=== PATIENT | female | born 1940 | race Caucasian/White ===

== ENCOUNTER → 2020-11-09 | Outpatient (CLI) | payer MEDICARE, BC ==
[2016-05-06 14:32] VITALS: BP 154/89
[~2020-11-09] MED LIST: ASPI-482 PO; CALC600T60 PO; LISI20TA18 PO; MAGN250T10 PO; MAGN296S68 PO; METO-239 PO; OMEP40CA45 PO; PRAV40TA2 PO
--- NOTE | 2020-11-09 16:49 | RAD ---
MR#: [id number] Date of Study: 11/09/2020 Ordering Physician: SONIA BROWN, Referring Physician: FLORENTIN FLANNERY Tech: RT Caitlyn (Conner) (N) APPROVED REPORT Test Type: Exercise Stress Nurse/Tech: Juan J Rojas RN Test Indications: chest pain Cardiac History: HTN Medications: See Electronic Medical Record Medical History: See Electronic Medical Record Resting ECG: SR Resting Heart Rate: 59 bpm Resting Blood Pressure: 188/76mmHg Pretest Chest Pain: No chest pain Nurse/Tech Notes Lungs CTA, S1S2 Consent: The procedure was explained to the patient in lay terms. Informed consent was witnessed. Mele eout was entered into [employer]. History and Stress Test performed by RT Sarah (R) (N) Stress Symptoms No chest pain or symptoms. POST EXERCISE Reason for Termination: Reached target heart rate Target HR: Yes % of Maximum Predicted HR: 119 bpm Exercise duration: 4:00 min:sec, 2 Stage Blood Pressure response to exercise: Normal blood pressure response during stress. Heart Rate response to exercise: normal response Chest Pain: No. Arrhythmia: No. ST Change: No. INTERPRETATION Stress EKG Conclusion: No evidence of stress induced EKG changes. Imaging Protocol IMAGE PROTOCOL: Rest Tc-99m/stress Tc-99m 1 day Rest: Stress: Viability: Radiopharm.Tc99m NriombpxfGu12z Sestamibi Dose10.2mCi 32.2mCi Duration 13min. 13min. Img Date 11/09/2020 11/09/2020 Inj-Img Cref70ogm. 60min. Rest Admin Site:IV - Right AntecubitalAdministrator:RT Caitlyn (Conner)(N) Stress Admin Site: IV - Right AntecubitalAdministrator: RT Gage Smith)(N) STRESS DATA End Diast. Vol.28.0mlLVEDV index BSA16.0ml End Syst. Vol.11.0mlLVESV index BSA6.0ml Myocardial Mass64.0gEject. Codffznn58.0% Stress Scores Regional WT3.00Summed WT40.00 Regional WM1.00Summed WM21.00 The rest and stress images show normal perfusion, normal contraction and thickening. LV Perf. Quant 17 Seg. SSS0.00 17 Seg. SRS4.00 17 Seg. SDS0.00 Stress Defect Extent (% LAD)0.00Rest Defect Extent (% LAD)0.00Rev. Defect Extent (% LAD)0.00 Stress Defect Extent (% LCX) 0.00Rest Defect Extent (% LCX)10.00Rev. Defect Extent (% LCX)0.00 Stress Defect Extent (% RCA)0.00Rest Defect Extent (% RCA)0.00Rev. Defect Extent (% RCA)0.00 Stress Defect Extent (% SONIA)0.00Rest Defect Extent (% SONIA)3.30Rev. Defect Extent (% SONIA)0.00 Other Information Quality:Average Risk Assessment: Low Risk Conclusion 1. No evidence of EKG changes with stress testing. Below average exercise capacity. 2. Normal perfusion at stress/rest. 3. Low risk study. 4. EF > 60%. Signed by : Reinaldo Kelsey, Electronically Approved : 11/09/2020 16:49:05
== END ==
LOC: NM 08:23
PROVIDERS: ATTEND Internal Medicine Cardiovascular Disease
DX: I10 Essential (primary) hypertension (principal); R07.9 Chest pain, unspecified
CPT/HCPCS: 78452; 93017; A9500